=== PATIENT | female | born 1950 | race Caucasian/White ===

== ENCOUNTER 2022-11-01 23:11 | Emergency (ER) | payer MEDICARE, SELFPAY ==
--- NOTE | ~2022-11-01 | CT_ITS ---
EXAMINATION: CT abdomen pelvis w con DATE: 11/02/2022 00:49 INDICATION: Abdominal pain. Recent gastrostomy tube placement. TECHNIQUE: Computed tomography (CT) of the abdomen and pelvis was performed with 100 mL Omnipaque 350 intravenous contrast. Automated exposure control and iterative reconstruction technique were employe d. The dose-length product was 1401.93 mGy-cm. COMPARISON: None. FINDINGS: The visualized portions of the lung bases demonstrate mild atelectasis. There is a right po sterior diaphragmatic hernia containing fat. A calcified right lung nodule and calcified right hilar and mediastinal lymph nodes are consistent with old granulomatous disease. No pleural effusion. The h eart size is normal. No pericardial effusion. The liver is normal. The gallbladder is distended. Ther e is a gastrostomy tube in expected position. The spleen, adrenal glands, and left kidney are normal. There is a 5.3 cm cyst in right kidney. There is an umbilical hernia containing fat. There is divert iculosis of the colon without evidence of diverticulitis. The appendix is normal. There are no pathol ogically enlarged lymph nodes. There is no free intraperitoneal fluid. There is mild thoracolumbar sp ondylosis. IMPRESSION: 1. Gallbladder distention, which may be secondary to fasting. Correlate with physical exam to exclude acute cholecystitis. 2. Umbilical hernia containing fat. 3. Gastrostomy tube in expected position. Reviewed, dictated and finalized at location A. IMPRESSION: 1. Gallbladder distention, which may be secondary to fasting. Correlate with ph ysical exam to exclude acute cholecystitis. 2. Umbilical hernia containing fat. 3. Gastrostomy tube in expected position.
--- NOTE | ~2022-11-01 | XR_ITS ---
EXAMINATION: XR chest 1V portable DATE: 11/02/2022 00:03 INDICATION: Chest pain. TECHNIQUE: A single frontal view of the chest was obtained. COMPARISON: CT abdomen and pelvis 11/02/2022 FINDINGS: The chest demonstrates clear lungs without pneumonia, pleural effusion, or pneumothorax. Th e heart size is normal. IMPRESSION: 1. No acute cardiopulmonary disease. Reviewed, dictated and finalized at location A.
[2022-11-01 23:14] VITALS: BP 156/125; PULSE 61; RESP 18; TEMP 36.6; O2SAT 96
--- NOTE | 2022-11-01 23:18 | ECG_ITS ---
Measurements Intervals [place] Rate: 60 P: 71 MS: 168 QRS: 4 QRSD: 75 T: 12 QT: 394 QTc: 394 Interpretive Statements SINUS RHYTHM LOW QRS VOLTAGE IN PRECORDIAL LEADS BORDERLINE T WAVE ABNORMALITY- INFERIOR LEADS BORDERLINE ECG NO PREVIOUS ECG AVAILABLE FOR COMPARISON Electronically Signed On 11-02-2022 7:33:25 CDT by Chung Casiano D.O.
[2022-11-01 23:20] VITALS: BP 156/125; O2SAT 98
[2022-11-01 23:23] VITALS: O2SAT 97
--- NOTE | 2022-11-01 23:26 | PC.NURSE ---
Pt to ED with a G tube. G tube has no drainage, has a gauze located around the insertion site. There is scant amount of blood located around the gauze. Pt states she had a G tube feeding before she came to the Ed. Pt states she tolerated the feeding well .
[2022-11-01 23:32] VITALS: BP 99/67; PULSE 76; O2SAT 98
[2022-11-01 23:46] VITALS: BP 105/78; PULSE 62; RESP 18
[2022-11-01 23:48] LABS: Basophils Absolute Auto 0.1 K/mm3 (0.0-0.1); Basophils Percent Auto 0.8 % (0.2-1.2); Eosinophils Absolute Auto 0.1 K/mm3 (0-0.3); Eosinophils Percent Auto 1.1 % (0-4.4); Hematocrit 38.4 % (37.0-47.0); Hemoglobin 12.5 g/dL (12.0-15.0); Immature Granulocyte Absolute 0.05 K/mm3 (0.00-0.031); Immature Granulocyte Percent A 0.6 % (0-0.5); Lymphocytes Absolute Auto 1.21 K/mm3 (0.9-3.2); Lymphocytes Percent Auto 15.3 % (18.3-44.2); Mean Corpuscular HGB Conc 32.6 g/dl (32-36); Mean Corpuscular Hemoglobin 29.2 pg (26-34); Mean Corpuscular Volume 89.7 fl (80-100); Mean Platelet Volume 11.2 fl (7.4-10.4); Monocytes Absolute Auto 0.8 K/mm3 (0.1-0.6); Monocytes Percent Auto 10.1 % (2.6-8.5); Neutrophils Absolute Auto 5.7 K/mm3 (1.3-6.7); Neutrophils Percent Auto 72.1 % (45.5-73.1); Platelet Count Result 298 k/mm3 (150-375); Red Blood Count 4.28 M/mm3 (4.2-5.4); Red Cell Distribution Width 14.1 % (11.5-14.5); White Blood Count 7.9 K/mm3 (4.5-10.0)
[2022-11-01 23:58] LABS: INR 1.2; Prothrombin Time 16.1 Seconds (11.1-14.7)
[2022-11-02] VITALS (12 sets, daily range): BP systolic 99–138; BP diastolic 57–98; PULSE 59–78; RESP 9–18; O2SAT 96–100
[2022-11-02] LABS: Lactic Acid Reflex 1.8 mmol/L (0.7-2.0)
[2022-11-02 00:01] LABS: Alanine Aminotransferase 46 U/L (6-35); Albumin Level 3.4 g/dL (3.5-5.1); Alkaline Phosphatase 72 U/L (38-126); Anion Gap 4 mmol/L (8-16); Aspartate Amino Transferase 76 U/L (14-36); Bilirubin,Total 0.6 mg/dL (0.2-1.3); Blood Urea Nitrogen 26 mg/dL (7-17); Calcium 8.7 mg/dL (8.4-10.2); Carbon Dioxide 28 mmol/L (22-30); Chloride 108 mmol/L (98-107); Estimated CRCL calculation 101 ml/min; Estimated Glomerular Filt Rate > 60; Glucose 114 mg/dL (65-110); Lipase 246 U/L (23-300); Potassium 4.2 mmol/L (3.4-5.0); Sodium 140 mmol/L (137-145)
[2022-11-02 00:11] LABS: Troponin I < 0.012 ng/mL (0.000-0.034)
[2022-11-02 03:09] LABS: Troponin I 0.013 ng/mL (0.000-0.034)
--- NOTE | 2022-11-02 03:58 | ED.GENADULT ---
HPI - General Adult General Chief complaint: Abdominal Pain Stated complaint: CHEST PAIN Time Seen by Provider: 11/01/22 23:18 History of Present Illness HPI narrative: Patient 72-year-old female who presents the emergency department with chief complaint of chest pain and epigastric pain. Patient was just discharged from the hospital in [place] to [facility]. The patient reports has been having chest discomfort for the last several days at that facility and was told that it was most likely secondary to either an NG tube or reflux patient continued to have symptoms today and decided to be transported to the emergency department for evaluation. Related Data Allergies Allergy/AdvReac Type Severity Reaction Status Date / Time amoxicillin Allergy Unknown Verified 11/01/22 18:22 clindamycin Allergy Rash Verified 11/01/22 18:22 codeine Allergy Unknown Verified 11/01/22 18:22 meloxicam Allergy Unknown Verified 11/01/22 18:22 morphine Allergy Unknown Verified 11/01/22 18:22 propoxyphene Allergy Unknown Verified 11/01/22 18:22 Review of Systems Review of Systems: A 10 system review of systems was completed on the patient and is negative except for what is stated in the HPI. Nursing and ancillary documentation was reviewed. [facility] Past Medical History Medical History Atrial fibrillation CVA (cerebral vascular accident) Dysphagia Hyperlipidemia Hypertension Left hemiplegia REAGAN (obstructive sleep apnea) Social History Social History Smoking status: Never smoker Alcohol intake: unknown Substance use: unknown Spiritual care concerns: No Exam Narrative: GENERAL: Well-appearing, well-nourished, and in no acute distress. HEAD: Normocephalic, atraumatic. EYES: PERRLA and EOMI. ENT: Nares clear, no rhinorrhea or epistaxis. Mucous membranes moist. NECK: Supple. CHEST: Clear to auscultation. No respiratory distress. HEART: Regular rate and rhythm. No murmur heard. Normal peripheral pulses. ABDOMEN: Soft, nontender, nondistended, normal active bowel sounds. EXTREMITIES: Normal range of motion. No edema. SKIN: Warm, dry, no rash. NEURO: No focal deficits. Alert and oriented x3. Left-sided paralysis PSYCH: Normal mood and affect. Course Vital Signs Vital signs: Vital Signs Temperature 36.6 C 11/01/22 23:14 Pulse Rate 61 11/01/22 23:14 Respiratory Rate 18 11/01/22 23:14 Blood Pressure 156/125 H 11/01/22 23:14 Pulse Oximetry 96 11/01/22 23:14 Oxygen Delivery Room Air 11/01/22 23:14 Temperature 36.6 C 11/01/22 23:14 Pulse Rate 61 11/01/22 23:14 Respiratory Rate 18 11/01/22 23:14 Blood Pressure 156/125 H 11/01/22 23:14 Pulse Oximetry 97 11/01/22 23:23 Oxygen Delivery Room Air 11/01/22 23:23 Medical Decision Making MDM Narrative Medical decision making narrative: Differential diagnosis includes ACS, reflux, gastritis, pancreatitis Laboratory studies were obtained on the patient which showed a CBC with a white count of 7.9 electrolytes showed liver enzymes were slightly elevated with an AST of 76 ALT of 46 total bilirubin was 0.6 lipase was 246 troponin is 0.013 at the 3-hour delta and initial troponin was less than 0.012 Patient will be given a dose of Protonix in the emergency department and started on Protonix as an outpatient Vital Signs Vital Signs: Vital Signs Temperature 36.6 C 11/01/22 23:14 Pulse Rate 61 11/01/22 23:14 Respiratory Rate 18 11/01/22 23:14 Blood Pressure 156/125 H 11/01/22 23:14 Pulse Oximetry 96 11/01/22 23:14 Oxygen Delivery Room Air 11/01/22 23:14 Temperature 36.6 C 11/01/22 23:14 Pulse Rate 61 11/01/22 23:14 Respiratory Rate 18 11/01/22 23:14 Blood Pressure 156/125 H 11/01/22 23:14 Pulse Oximetry 97 11/01/22 23:23 Oxygen Delivery Room Air 0
[2022-11-02] MEDS: PANTOPRAZOLE SODIUM IV 40 MG VIAL IV PUSH (04:16)
== END 2022-11-02 05:01 ==
PROVIDERS: Emergency Provider Emergency Medicine; PCP Hospitalist
DX: R07.89 Other chest pain (principal); I69.954 Hemiplegia and hemiparesis following unspecified cerebrovascular disease affecting left non-dominant side; I48.91 Unspecified atrial fibrillation; I10 Essential (primary) hypertension; E78.5 Hyperlipidemia, unspecified; G47.33 Obstructive sleep apnea (adult) (pediatric)
CPT/HCPCS: 36415; 71045; 74177; 80053; 83605; 83690; 84484; 85025; 85610; 85730; 93005; 96374; 99284; C9113; Q9967

== ENCOUNTER 2022-11-05 20:25 | Emergency (ER) | payer MEDICARE, SELFPAY ==
--- NOTE | ~2022-11-05 | XR_ITS ---
EXAMINATION: XR chest 1V portable DATE: 11/05/2022 21:28 INDICATION: Fall. TECHNIQUE: A single frontal view of the chest was obtained. COMPARISON: Chest single view 11/01/2022 FINDINGS: Again seen is mild elevation of right hemidiaphragm. No pneumonia, pleural effusion, or pne umothorax. The heart size is normal. IMPRESSION: 1. No acute cardiopulmonary disease. Reviewed, dictated and finalized at location E.
--- NOTE | ~2022-11-05 | CT_ITS ---
EXAMINATION: CT brain wo con DATE: 11/05/2022 22:32 INDICATION: Fall. TECHNIQUE: Computed tomography (CT) of the head was performed without intravenous contrast. The mA wa s adjusted according to patient size. Iterative reconstruction technique was employed. The dose-lengt h product was 681.00 mGy-cm. COMPARISON: None FINDINGS: There is low attenuation in the right frontal lobe, right insula, and right basal ganglia, consistent with infarct. There is no intracranial hemorrhage or abnormal mass lesion. The ventricles are normal in size. There are likely changes of ocular lens replacement surgeries. There is mild muco kathy thickening in the paranasal sinuses. The mastoid air cells are normal. IMPRESSION: 1. Infarct in the right frontal lobe, right insula, and right basal ganglia, likely acute or subacute . Reviewed, dictated and finalized at location E. IMPRESSION: 1. Infarct in the right frontal lobe, right insula, and right basal ganglia, camilo joy acute or subacute.
--- NOTE | ~2022-11-05 | CT_ITS ---
EXAMINATION: CT abdomen pelvis w con DATE: 11/05/2022 22:37 INDICATION: Epigastric abdominal pain. Left upper quadrant abdominal pain. Fall. TECHNIQUE: Computed tomography (CT) of the abdomen and pelvis was performed with 100 mL Omnipaque 350 intravenous contrast. Automated exposure control and iterative reconstruction technique were employe d. The dose-length product was 1542.39 mGy-cm. COMPARISON: CT abdomen and pelvis 11/02/2022 FINDINGS: The visualized portions of the lung bases demonstrate mild atelectasis in the right. A calc ified right lung nodule and calcified right hilar and mediastinal lymph nodes are consistent with old granulomatous disease. No pleural effusion. The heart size is normal. No pericardial effusion. The l iver is normal. The gallbladder is normal in size. There is a gastrostomy tube in expected position. There is fat stranding in anterior abdominal wall around the gastrostomy tube. The spleen, pancreas, adrenal glands, and left kidney are normal. There is a 5.0 cm cyst in right kidney. There are no dila dieudonne loops of bowel. The appendix is normal. There are no pathologically enlarged lymph nodes. There i s no free intraperitoneal fluid. There is moderate thoracic spondylosis and mild lumbar spondylosis. IMPRESSION: 1. Fat stranding in anterior abdominal wall around the gastrostomy tube, consistent with inflammation . Reviewed, dictated and finalized at location E. IMPRESSION: 1. Fat stranding in anterior abdominal wall around the gastrostomy tube, consis tent with inflammation.
--- NOTE | ~2022-11-05 | XR_ITS ---
EXAMINATION: XR knee LT 3V DATE: 11/05/2022 21:26 INDICATION: Left knee pain. TECHNIQUE: 2 views of left knee were obtained. COMPARISON: None. FINDINGS: Bone alignment is normal. No fracture. There is mild left knee osteoarthritis characterized by tiny marginal osteophytes. No joint space narrowing. No knee joint effusion. There is a loose bod y in a Palm's cyst. IMPRESSION: 1. Mild left knee osteoarthritis. Reviewed, dictated and finalized at location E.
--- NOTE | ~2022-11-05 | CT_ITS ---
EXAMINATION: CT cervical spine wo con DATE: 11/05/2022 22:33 INDICATION: Fall. TECHNIQUE: Computed tomography (CT) of the cervical spine was performed without intravenous contrast. Automated exposure control and iterative reconstruction technique were employed. The dose-length pro duct was 583.22 mGy-cm. COMPARISON: None FINDINGS: Bone alignment is normal. Vertebral body heights are normal. There is mildly decreased disc height at C3-C4 and C4-C5 and severely decreased disc height at C5-C6. The following disc levels are specifically discussed: C2-C3: There is no uncovertebral joint osteoarthritis. There is mild bilateral facet joint osteoarthr itis. There is no neural foraminal stenosis. There is no central canal stenosis. C3-C4: There is mild right uncovertebral joint osteoarthritis. There is moderate bilateral facet join t osteoarthritis. There is mild left neural foraminal stenosis. There is mild central canal stenosis. C4-C5: There is moderate bilateral uncovertebral joint osteoarthritis. There is mild right and severe left facet joint osteoarthritis. There is mild bilateral neural foraminal stenosis. There is mild ce ntral canal stenosis. C5-C6: There is severe bilateral uncovertebral joint osteoarthritis. There is mild bilateral facet [place] int osteoarthritis. There is mild bilateral neural foraminal stenosis. There is mild central canal st enosis. C6-C7: There is mild bilateral uncovertebral joint osteoarthritis. There is mild bilateral facet join t osteoarthritis. There is no neural foraminal stenosis. There is no central canal stenosis. C7-T1: There is no uncovertebral joint osteoarthritis. There is severe right and mild left facet join t osteoarthritis. There is mild right neural foraminal stenosis. There is no central canal stenosis. IMPRESSION: 1. No fracture. 2. Severe cervical spondylosis. Reviewed, dictated and finalized at location E.
[2022-11-05 20:25] VITALS: BP 127/79; PULSE 79; RESP 15; O2SAT 98
--- NOTE | 2022-11-05 20:42 | ECG_ITS ---
Measurements Intervals [place] Rate: 73 P: 73 UT: 171 QRS: 6 QRSD: 83 T: 1 QT: 356 QTc: 393 Interpretive Statements SINUS RHYTHM BASELINE WANDER- I, III, AVR, AVL, AVF, V1 NORMAL ECG COMPARED TO ECG 11/01/2022 23:20:48 NO SIGNIFICANT CHANGES Electronically Signed On 11-05-2022 21:16:33 CDT by Chung Casiano D.O.
--- NOTE | 2022-11-05 20:46 | ED.FALL ---
HPI - Fall General Chief Complaint: Fall <Italia Alvarez PA-C - Last Filed: 11/07/22 23:59> Stated Complaint: FALL, EYELID LAC, ?LOC <Italia Alvarez PA-C - Last Filed: 11/07/22 23:59> Time Seen by Provider: 11/05/22 20:25 <Italia Alvarez PA-C - Last Filed: 11/07/22 23:59> History of Present Illness HPI Narrative: 72-year-old female with a history of CVA 3 weeks ago, hyperlipidemia, hypertension, REAGAN, A-fib reports [facility] that occurred prior to arrival. Per EMS, patient was sitting in a recliner, leaned forward and continued to lean forward, hitting her head on a table in front of her and falling out of the chair. Patient states she has been unstable since the CVA. She is unsure if she lost consciousness but states she remembers waking up to a puddle of blood around her. EMS believes she was laying on the ground for approximately 15 to 20 minutes. She is reporting with a 1 cm laceration over the left aspect of her forehead above her eyebrow, bleeding controlled, and c-collar placed. Last tetanus unknown. She is reporting neck pain and left knee pain. She is also reporting pain to the epigastrium and left upper quadrant around her G-tube since today. EMS states she had approximately 5 episodes of emesis after the fall. Denies headache, vision changes, new onset focal numbness or weakness, back pain, fever. She has left hemiplegia since her prior CVA 3 weeks ago. She is also reporting chest pain that is unchanged from her baseline. Of note patient was evaluated 11/02 here at [place] ED for chest pain which was felt to be atypical in nature. She was sent home with Protonix. She is currently taking apixaban for A-fib. <Italia Alvarez PA-C - Last Filed: 11/07/22 23:59> Related Data Allergies/Adverse Reactions: Allergies Allergy/AdvReac Type Severity Reaction Status Date / Time amoxicillin Allergy Unknown Verified 11/05/22 20:47 clindamycin Allergy Rash Verified 11/05/22 20:47 codeine Allergy Unknown Verified 11/05/22 20:47 meloxicam Allergy Unknown Verified 11/05/22 20:47 morphine Allergy Unknown Verified 11/05/22 20:47 propoxyphene Allergy Unknown Verified 11/05/22 20:47 <Italia Alvarez PA-C - Last Filed: 11/07/22 23:59> Review of Systems Review of Systems: CONSTITUTIONAL: Denies fever, chills EYES: Denies visual changes, redness, or discharge. ENT: Denies rhinorrhea, congestion, sore throat, or otalgia. CARDIOVASCULAR: See HPI RESPIRATORY: Denies cough or dyspnea. GASTROINTESTINAL: See HPI GENITOURINARY: Denies dysuria or hematuria. SKIN: Denies rash or itching. MUSCULOSKELETAL: Denies back pain, joint pain, or myalgia. NEUROLOGIC: See HPI PSYCHIATRIC: Denies anxiety or depression. <Italia Alvarez PA-C - Last Filed: 11/07/22 23:59> [facility] Past Medical History Medical History: Medical History Atrial fibrillation CVA (cerebral vascular accident) Dysphagia Hyperlipidemia Hypertension Left hemiplegia REAGAN (obstructive sleep apnea) <Italia Alvarez PA-C - Last Filed: 11/07/22 23:59> Social History Social History: Social History Smoking status: Never smoker Alcohol intake: unknown Substance use: unknown Spiritual care concerns: No <Italia Alvarez PA-C - Last Filed: 11/07/22 23:59> Exam Narrative: GENERAL: Well-appearing, in no acute distress. HEAD: Normocephalic EYES: PERRLA, EOMI ENT: Nares clear. Mucous membranes moist. Oropharynx without tonsillar hypertrophy exudate or other lesions. Bilateral TMs rodriguez nonbulging. No hemotympanum. NECK: Patient placed in c-collar. There is midline cervical spinous tenderness without step-offs or deformities. CHEST: No respiratory distress. Clear to auscultation, no adventitious breath sounds. HEART: Regular rate and rhythm. No mu
[2022-11-05 21:59] LABS: Basophils Percent Auto 0.3 % (0.2-1.2); Eosinophils Absolute Auto 0.1 K/mm3 (0-0.3); Eosinophils Percent Auto 0.6 % (0-4.4); Hematocrit 36.8 % (37.0-47.0); Hemoglobin 12.2 g/dL (12.0-15.0); Immature Granulocyte Absolute 0.06 K/mm3 (0.00-0.031); Immature Granulocyte Percent A 0.4 % (0-0.5); Lymphocytes Absolute Auto 1.03 K/mm3 (0.9-3.2); Lymphocytes Percent Auto 7.4 % (18.3-44.2); Mean Corpuscular HGB Conc 33.2 g/dl (32-36); Mean Corpuscular Hemoglobin 29.7 pg (26-34); Mean Corpuscular Volume 89.5 fl (80-100); Mean Platelet Volume 11.6 fl (7.4-10.4); Monocytes Absolute Auto 1.1 K/mm3 (0.1-0.6); Monocytes Percent Auto 8.1 % (2.6-8.5); Neutrophils Absolute Auto 11.6 K/mm3 (1.3-6.7); Neutrophils Percent Auto 83.2 % (45.5-73.1); Platelet Count Result 253 k/mm3 (150-375); Red Blood Count 4.11 M/mm3 (4.2-5.4); Red Cell Distribution Width 14.1 % (11.5-14.5); White Blood Count 13.9 K/mm3 (4.5-10.0)
[2022-11-05 22:09] LABS: Alanine Aminotransferase 37 U/L (6-35); Albumin Level 3.3 g/dL (3.5-5.1); Alkaline Phosphatase 99 U/L (38-126); Anion Gap 3 mmol/L (8-16); Aspartate Amino Transferase 29 U/L (14-36); Bilirubin,Total 0.6 mg/dL (0.2-1.3); Blood Urea Nitrogen 20 mg/dL (7-17); Calcium 8.5 mg/dL (8.4-10.2); Carbon Dioxide 28 mmol/L (22-30); Chloride 102 mmol/L (98-107); Estimated CRCL calculation 85 ml/min; Estimated Glomerular Filt Rate > 60; Glucose 118 mg/dL (65-110); Lipase 301 U/L (23-300); Potassium 3.8 mmol/L (3.4-5.0); Sodium 133 mmol/L (137-145)
[2022-11-05 22:10] LABS: Creatine Kinase 69 U/L (30-135)
[2022-11-05] MEDS: ONDANSETRON INJ 4 MG/2 ML VIAL IV PUSH (22:10)
[2022-11-05] MEDS: PANTOPRAZOLE SODIUM IV 40 MG VIAL IV PUSH (22:10)
[2022-11-05 22:11] LABS: INR 1.2; Partial Thromboplastin Time 32.5 SECONDS (22.3-36.8); Prothrombin Time 15.5 Seconds (11.1-14.7)
[2022-11-05] MEDS: TETANUS,DIPHTHERIA,AC PERTUSSIS ADULT (0.5 ML) BOOSTRIX IM (22:11)
[2022-11-05] MEDS: LIDO 1%/EPINEPHRINE 1:100,000 20 ML VIAL 5 ML INFILTRATE (22:11)
[2022-11-05] MEDS: SODIUM CHLORIDE 0.9% IV 1,000 ML 999 ML IV CONT (22:12)
[2022-11-05 22:21] LABS: Troponin I < 0.012 ng/mL (0.000-0.034)
[2022-11-05 23:25] LABS: Appearance Urine Clear (Clear); Bacteria Urine 4+ /hpf; Bilirubin Urine Negative (Negative); Blood Urine Trace (Negative); Color Urine Yellow (Yellow); Glucose Urine UA Negative (Negative); Ketones Urine Negative (Negative); Leukocyte Esterase Ur Trace LEU/UL (Negative); Nitrate Urine Positive (Negative); Non Pathogenic Casts 0-2; Protein Urine Negative (Negative); RBC Urine 0-2 /hpf (0-2); Specific Grav Ur 1.034 (1.001-1.035); Squamous Epithelial Cell Urine None seen /hpf (Few); WBC Urine 0-5 /hpf
[2022-11-05 23:33] LABS: Add Urine Microscopic? YES
[2022-11-06] VITALS (13 sets, daily range): BP systolic 100–125; BP diastolic 57–83; PULSE 63–89; RESP 12–18; O2SAT 98
[2022-11-06] MEDS: ACETAMINOPHEN 325 MG TABLET 650 MG PO (01:04)
[2022-11-06 02:56] LABS: Troponin I < 0.012 ng/mL (0.000-0.034)
[2022-11-06] MEDS: SODIUM CHLORIDE 0.9% IV 1,000 ML 999 ML IV CONT ×2 (03:20)
--- NOTE | 2022-11-06 05:06 | PC.NURSE ---
Pts daughter, Marilyn, number [phone].
--- NOTE | 2022-11-06 06:41 | PC.NURSE ---
Spoke with pts daughter via phone and informed her of pt status and that she will be going back to [facility] via ambulance.
--- NOTE | 2022-11-06 07:36 | PC.NURSE ---
pts daughter called to inform her that EMS was here to take her back to [facility].
== END 2022-11-06 07:37 ==
PROVIDERS: Emergency Provider Physician Assistant
DX: S01.81XA Laceration without foreign body of other part of head, initial encounter (principal); R07.89 Other chest pain; R10.13 Epigastric pain; R10.12 Left upper quadrant pain; Z23 Encounter for immunization; I69.954 Hemiplegia and hemiparesis following unspecified cerebrovascular disease affecting left non-dominant side; I69.991 Dysphagia following unspecified cerebrovascular disease; R13.10 Dysphagia, unspecified; I48.91 Unspecified atrial fibrillation; I10 Essential (primary) hypertension; E78.5 Hyperlipidemia, unspecified; G47.33 Obstructive sleep apnea (adult) (pediatric); Z93.1 Gastrostomy status; M17.12 Unilateral primary osteoarthritis, left knee; M47.812 Spondylosis without myelopathy or radiculopathy, cervical region; Z79.01 Long term (current) use of anticoagulants; W07.XXXA Fall from chair, initial encounter
CPT/HCPCS: 36415; 70450; 71045; 72125; 73562; 74177; 80053; 81001; 82550; 83690; 84484; 85025; 85610; 85730; 90471; 90715; 93005; 96361; 96374; 96375; 99284; A9270; C9113; J2405; J7030; Q9967